=== PATIENT | female | born 1940 | race Caucasian/White ===

== ENCOUNTER → 2023-08-06 | Outpatient (CLI) | payer MEDICARE, OTHER ==
[~2023-08-06] MED LIST: ALOE25CA2 PO; AMLO-251 PO; ANTI1CAP5 PO; CHOL100L MC; CRAN125T PO; HYDR50TA6 PO; LEVO75CA5 PO; LOSA100T58 PO; MECO10005 PO; MELO15TA39 PO; MTP25TSR PO; ROSU20TA73 PO; TUME1CAP PO; UBID100C17 PO
--- NOTE | 2023-08-06 16:39 | Diagnostic Imaging Report ---
EXAMINATION: Right hip unilateral 2 or 3 views (w/pelvis when done) HISTORY: Hip pain COMPARISON: None available. FINDINGS: There is moderate right hip osteoarthritis. No fracture or dislocation. IMPRESSION: 1. Moderate right hip osteoarthritis. Dictated by: Dictated on workstation # [id number]
== END ==
LOC: EDBD → ORTHO 13:26
PROVIDERS: ATTEND Orthopaedic Surgery
DX: M16.11 Unilateral primary osteoarthritis, right hip (principal)
CPT/HCPCS: 73502; G0463; 99203

== ENCOUNTER → 2023-08-12 | Outpatient (CLI) | payer MEDICARE, OTHER ==
[~2023-08-12] VITALS: Ht 165.1 cm; Wt 96.8 kg
[2023-08-12 10:33] VITALS: BP 148/68
[2023-08-12 10:58] LABS: BILIRUBIN,URINE NEGATIVE (NEGATIVE); CLARITY,URINE CLEAR; COLOR,URINE YELLOW; GLUCOSE, URINE (UA) NEGATIVE (NEGATIVE); KETONES,URINE NEGATIVE (NEGATIVE); LEUKOCYTE ESTERASE ,URINE 3+ (NEGATIVE); NITRITE,URINE NEGATIVE (NEGATIVE); PROTEIN,URINE NEGATIVE (NEGATIVE)
[2023-08-12 10:59] LABS: BACTERIA,URINE LARGE /HPF; RBC,URINE RARE /HPF; WBC,URINE TNTC /HPF
[2023-08-12 11:58] LABS: BASOPHILS % (AUTO) 0 % (0-10); EOSINOPHILS # (AUTO) 0.3 10^3/uL (0.0-0.3); EOSINOPHILS % (AUTO) 3 % (0-10); HEMATOCRIT 39 % (35-52); HEMOGLOBIN 12.6 g/dL (11.5-16.0); LYMPHOCYTES % (AUTO) 23 % (12-44); MEAN CORPUSCULAR HEMOGLOBIN 31 pg (25-34); MEAN CORPUSCULAR HGB CONC 32 g/dL (32-36); MEAN CORPUSCULAR VOLUME 95 fL (80-99); MEAN PLATELET VOLUME 9.2 fL (9.0-12.2); MONOCYTES # (AUTO) 0.7 10^3/uL (0.0-1.0); MONOCYTES % (AUTO) 8 % (0-12); NEUTROPHILS % (AUTO) 66 % (42-75); PLATELET COUNT 242 10^3/uL (130-400)
[2023-08-12 12:08] LABS: POTASSIUM 4.1 MMOL/L (3.6-5.0)
[2023-08-12 12:09] LABS: CALCIUM 9.7 MG/DL (8.5-10.1)
[2023-08-12 12:14] LABS: CREATININE SERUM 1.11 MG/DL (0.60-1.30)
--- NOTE | 2023-08-12 14:41 | Diagnostic Imaging Report ---
EXAMINATION: Chest 2 view HISTORY: Preoperative evaluation. COMPARISON: None available. FINDINGS: Heart size and pulmonary vasculature are normal. The lungs are clear without consolidation, pleural effusion, or pneumothorax. The osseous structures are intact. IMPRESSION: 1. No acute radiographic abnormality in the chest. Dictated by: Dictated on workstation # [id number]
== END ==
LOC: PREOP 05:29
PROVIDERS: ATTEND Orthopaedic Surgery
DX: Z01.818 Encounter for other preprocedural examination (principal); M16.11 Unilateral primary osteoarthritis, right hip
CPT/HCPCS: 36415; 71046; 80048; 81000; 85025; 87081; 87088; 93005